=== PATIENT | male | born 1940 | race Caucasian/White ===

== ENCOUNTER 2017-06-07 09:09 | Emergency (ER) | payer MEDICARE, BC ==
[2017-06-07 10:06] LABS: BASOPHILS 0.4 % (0.0-2.0); EOSINOPHILS 0.4 % (0.0-6.0); HEMATOCRIT 39.4 % (42.0-54.0); HEMOGLOBIN 13.1 g/dL (14.0-18.0); LYMPHOCYTES 13.1 % (20.0-40.0); LYMPHOCYTES# 0.7 X 10^3uL (0.8-3.8); MEAN CELL VOLUME 90.9 fL (80.0-100.0); MEAN CORPUS. HGB CONCENTRATION 33.4 g/dL (32.0-36.0); MEAN CORPUSCULAR HEMOGLOBIN 30.3 pg (29.0-35.0); MEAN PLATELET VOLUME 9.4 fL (7.4-10.4); MONOCYTES 9.5 % (2.0-10.0); MONOCYTES# 0.5 X 10^3uL (0.2-1.0); NEUTROPHILS 76.6 % (54.0-75.0); NEUTROPHILS# 4.2 X 10^3uL (2.6-6.7); PLATELET COUNT 188 X 10^3uL (130-440); RED BLOOD COUNT 4.33 X 10^6uL (4.20-6.10); RED CELL DISTRIBUTION WIDTH 12.8 % (11.5-14.5); WHITE BLOOD COUNT 5.4 X 10^3uL (3.9-10.7)
[2017-06-07 10:12] LABS: A/G RATIO 1.3; ALBUMIN 4.1 g/dL (3.5-5.0); ALKALINE PHOSPHATASE 52 U/L (38-126); ALT 34 U/L (21-72); AST 32 U/L (17-59); BILIRUBIN, TOTAL 0.7 mg/dL (0.2-1.3); BLOOD UREA NITROGEN 27 mg/dL (9-20); CALCIUM 9.7 mg/dL (8.4-10.2); CHLORIDE 102 mmol/L (98-107); EST GLOMERULAR FILTRATION RATE 42 mL/min; GLUCOSE 120 mg/dL (70-100); POTASSIUM 4.1 mmol/L (3.5-5.1); SODIUM 140 mmol/L (137-145); TOTAL PROTEIN 7.3 g/dL (6.3-8.2)
[2017-06-07 10:20] LABS: MAGNESIUM 2.2 mg/dL (1.6-2.3)
--- NOTE | 2017-06-07 10:31 | ER NURSING DOCUMENTATION ---
Nurse's Notes [facility] Name:Cory Zhao Jr Age:77 yrs Sex:Male :1940 Arrival Date:06/07/2017 Time:: BedTrauma-B Private MD: Diagnosis:Palpitations Presentation: 06/07 09:24 Presenting complaint: Patient states: had an episode of "a-fib" yesterday. No sc1 complaints today. Transition of care: patient was not received from another setting of care. Notified ED Physician of patient's arrival and CC Dr. Knox notified. 09:24 Acuity: NATACHA 3 sc1 09:24 Method Of Arrival: Private Vehicle id1 Triage Assessment: 09:26 General: Appears. General: Appears in no apparent distress, well developed, well sc1 nourished, well groomed, Behavior is cooperative, pleasant. Pain: Denies pain. Pain: Denies pain. Historical: - Allergies: No known drug Allergies; - Home Meds: 1. Coumadin Oral - PMHx: ATRIAL FIB; - PSHx: None; - Ebola Screening: : Patient negative for fever greater than or equal to 101.5 degrees Fahrenheit, and additional compatible Ebola Virus Disease symptoms. Patient denies exposure to infectious person. Patient denies travel to an Ebola-affected area in the 21 days before illness onset. No symptoms or risks identified at this time. . - Immunization history: Flu Vaccine < 1 year. - Social history: Smoking status: Patient states was never smoker of tobacco. Patient uses alcohol but reports only rare drinking. Patient/guardian denies using street drugs, IV drugs, marijuana. Screenin:27 Infectious Disease Risk None. Abuse screen: Denies threats or abuse. Nutritional id1 screening: No deficits noted. Assessment: 10:30 Reassessment: No changes from previously documented assessment. id1 Vital Signs: 09:26 BP 147 / 79; Pulse 85; Resp 16; Temp 98.2; Pulse Ox 95% on R/A; sc1 10:29 BP 137 / 80; Pulse 85; Resp 16; Temp 98.3; Pulse Ox 95% on R/A; sc1 ED Course: 07:14 EKG done. (by ED staff). Reviewed by Carloz Knox MD. id1 09:11 Patient arrived in ED. ama 09:24 Mirna Malone, RN is Primary Nurse. sc1 09:25 Triage completed. sc1 09:27 Notified ED Physician of patient's arrival and chief complaint. Dr. Knox notified. Arm sc1 band placed on Bed in low position Call Light in Reach Gowned HOB Elevated. EKG done per protocol. Performed by ED Staff. Shown to ED physician. 09:54 Carloz Knox MD is Attending Physician. tl1 09:59 Satinder Rutherford MD is Referral Physician. tl1 10:10 Inserted peripheral IV: 20 gauge in left antecubital area and blood collected. sc1 10:30 Discontinued lock intact, bleeding controlled, pressure dressing applied, No sc1 redness/swelling at site. Administered Medications: No medications were administered Outcome: 10:00 Discharge ordered by . tl1 10:29 Discharged to home ambulatory. sc1 10:29 Condition: stable 10:29 Discharge instructions given to patient, Instructed on discharge instructions, follow up and referral plans. Demonstrated understanding of instructions. 10:29 IV D/Lencho 10:30 Patient left the ED. id1 06/08 13:48 Discharge F/U Call: Unable to reach: no answer st Signatures: Jenny Mora RN RN Mirna Meneses, JEROME RN sc1 Сергей Eddy, Reg Reg Carloz Bales MD MD 1
[2017-06-07 10:52] LABS: THYROID STIMULATING HORMONE 1.85 uIU/mL (0.47-4.68)
--- NOTE | 2017-06-09 10:57 | ER PHYSICIAN DOCUMENTATION ---
Physician Documentation [facility] Name:Cory Zhao Jr Age:77 yrs Sex:Male :1940 Arrival Date:06/07/2017 Time:09:09 BedTrauma-B Private MD: Carloz Santiago Disposition: 06/07 11:00 Chart complete. tl1 Disposition: 06/07/17 10:00 Discharged to Home/Self Care. Impression: Palpitations. - Condition is Good. - Discharge Instructions: PALPITATIONS. - Medical Reconciliation form form. - Follow up: Satinder Driver MD; When: 4- 6 days; Reason: Recheck today's complaints, Continuance of care. - Problem is new. - Symptoms are resolved. - Notes: YOU MAY HAVE HAD ANOTHER EPISODE OF ATRIAL FIBRILLATION. CALL TODAY OR TOMORROW TO MAKE AN APPOINTMENT TO SEE DR DRIVER WITHIN A WEEK OR SO. HPI: 09:20 This 77 yrs old Male presents to ER via Private Vehicle with complaints of tl1 Irregular Pulse. 09:20 The patient presents with a history of irregular heart beat. Context: The symptoms tl1 occur with light activity. He says he had an episode of A fib about a year or so ago, in [place]. He was seen in an ED, but never had any cardiology f/u or an echo or TFTs. Since then he was well until yesterday afternoon when he had a roughly 2 hr episode of an irregular fast heart rate. He thought it was another episode of A fib. He comes in now to get checked out. He has no symptoms now. Denies h/o CAD, thyroid disease, or other significant medical problems.. Historical: - Allergies: No known drug Allergies; - Home Meds: 1. Coumadin Oral - PMHx: ATRIAL FIB; - PSHx: None; - Ebola Screening: : Patient negative for fever greater than or equal to 101.5 degrees Fahrenheit, and additional compatible Ebola Virus Disease symptoms. Patient denies exposure to infectious person. Patient denies travel to an Ebola-affected area in the 21 days before illness onset. No symptoms or risks identified at this time. . - Immunization history: Flu Vaccine < 1 year. - Social history: Smoking status: Patient states was never smoker of tobacco. Patient uses alcohol but reports only rare drinking. Patient/guardian denies using street drugs, IV drugs, marijuana. ROS: 09:20 Cardiovascular: Positive for palpitations, Negative for chest pain, edema, orthopnea, tl1 paroxysmal nocturnal dyspnea, acute changes. 09:20 Respiratory: Negative for cough, dyspnea on exertion, orthopnea, pleurisy, shortness of breath, sputum production, wheezing. 09:20 Abdomen/GI: Negative for abdominal pain, nausea, vomiting, diarrhea, hematemesis, black/tarry stool, rectal bleeding. 09:20 All other systems are negative. Exam: 09:20 Constitutional: This is a well developed, well nourished patient who is awake, alert, tl1 and in no acute distress. Head/Face: Normocephalic, atraumatic. Eyes: Pupils equal round and reactive to light, extra-ocular motions intact. Lids and lashes normal. Conjunctiva and sclera are non-icteric and not injected. Cornea within normal limits. Periorbital areas with no swelling, redness, or edema. Neck: Trachea midline, no thyromegaly or masses palpated, and no cervical lymphadenopathy. Supple, full range of motion without nuchal rigidity, or vertebral point tenderness. No Meningismus. 09:20 Chest/axilla: Normal chest wall appearance and motion. Nontender with no deformity. tl1 No lesions are appreciated. 09:20 Cardiovascular: Rate: normal, Rhythm: regular, Heart sounds: normal, no murmur, no rub, no gallop, Edema: is not appreciated, JVD: is not appreciated. 09:20 Respiratory: Respirations: normal, Breath sounds: are normal, no rales, rhonchi, no stridor, no wheezing. 09:20 Abdomen/GI: Palpation: abdomen is soft and non-tender. 09:20 Musculoskeletal/extremity: Exam is negative for acute changes. 09:20 Skin: Exam negative for acute changes. 09:20 Neuro: Exam negative for acute changes. Vital Signs: 09:26 BP 147 / 79; Pulse 85; Resp 16; Temp 98.2; Pulse Ox 95% on R/A; sc1 10:29 BP 137 / 80; Pulse 85; Resp 16; Temp 98.3; Pulse Ox 95% on R/A; sc1 MDM: 09:30 Response to treatment: There is no appreciated change of the patient's symptoms at this tl1 time, and as a result, I will discharge patient. Special discussion: Nothing to do now. I recommended he f/u with a oil drilling engineer sometime in the next week or so,and return here for any problems.. ED course: Asymptomatic throughout his ED stay.. 09:54 Patient medically screened. tl1 11:00 Differential diagnosis: arrythmia, dehydration, stress disorder. Data reviewed: vital tl1 signs, nurses notes, lab test result(s), CBC, electrolytes, hepatic panel, TSH, EKG, and as a result, I will discharge patient. Data interpreted: ekg monitor tech: Pulse oximetry:. Test interpretation: by ED physician or midlevel provider: ECG. Counseling: I had a detailed discussion with the patient and/or guardian regarding: the historical points, exam findings, and any diagnostic results supporting the discharge/admit diagnosis, lab results, radiology results, the need for outpatient follow up, a oil drilling engineer, to return to the emergency department if symptoms worsen or persist or if there are any questions or concerns that arise at home. ECG:. 06/07 10:13 Order name: COMPREHENSIVE METABOLIC PANEL; Complete Time: 11:13 [facility] 06/07 10:53 Interpretation: Normal Except: BLOOD UREA NITROGEN 27; CREATININE 1.7. tl1 06/07 10:14 Order name: CBC AUTO DIF, MDIF/RMOR IF IND; Complete Time: 11:13 [facility] 06/07 10:53 Interpretation: WHITE BLOOD COUNT 5.4; HEMOGLOBIN 13.1; HEMATOCRIT 39.4; PLATELET COUNT tl1 188; NEUTROPHILS 76.6. 06/07 10:53 Order name: MAGNESIUM [facility] 06/07 10:53 Order name: THYROID STIMULATING HORMONE [facility] 06/07 09:28 Order name: EKG - 12 Lead; Complete Time: 09:44 fl1 EC:30 Rhythm is regular, Normal Sinus Rhythm. QRS [place] is Normal. [place] interval is normal. QRS tl1 interval is normal. QT interval is normal. No Q waves. T waves are Normal. No ST changes noted. Clinical impression: Normal ECG. Interpreted by me. Reviewed by me. Dispensed Medications: No medications were administered Signatures: Mirna Malone RN RN fl1 Carloz Knox MD MD 1
== END 2017-06-07 10:31 | disposition home or self-care (01) ==
LOC: ER 09:09
DX: R00.2 Palpitations (principal); I48.91 Unspecified atrial fibrillation; Z79.01 Long term (current) use of anticoagulants
CPT/HCPCS: 80053; 83735; 84443; 85025; 93005; 99283; 99284